=== PATIENT | female | born 1970 | race Caucasian/White ===

== ENCOUNTER → 2019-03-23 | Outpatient (CLI) | payer OTHER, SELFPAY ==
--- NOTE | 2019-03-23 11:48 | BI_ITS ---
MAMMOGRAPHY - BILATERAL SCREENING 3-D TOMOSYNTHESIS REASON FOR EXAM: Female, 49 years old. Bilateral Screening 3-D tomosynthesis PERTINENT HISTORY: Grandmother and aunt with breast cancer.. TECHNIQUE: 2-D mammograms and 3-D Tomosynthesis of the breast (s) were performed. CAD was performed. COMPARISON: 05/19/2017 FINDINGS: The breast composition is heterogeneously dense that can obscure small breast masses. Scattered benign calcifications are seen. No dense spiculated masses or suspicious microcalcifications are identified. No architectural distortion is identified. There is no skin thickening or retraction. There has been no significant change since the prior study. BI/SCREENING MAMM (CAD), BILAT IMPRESSION: No mammographic signs of malignancy. Routine yearly mammograms recommended. ASSESSMENT CATEGORY: BIRADS Category 1: Negative. A letter regarding these results will be sent to the patient by the facility within 30 days. FOLLOW UP RECOMMENDATION: Yearly follow up mammogram recommended. (A) Approximately 10% of breast cancers are not detected by mammography. A normal mammogram should not delay biopsy of a clinically suspicious abnormality. Electronically Signed: Brady Olivas MD at 13:15 EDT , Service support ,
== END | disposition home or self-care (01) ==
LOC: OPBI 11:48
PROVIDERS: Family Provider Family Medicine; PCP Family Medicine; Referring Provider Family Medicine; Visit Provider Family Medicine
DX: Z12.31 Encounter for screening mammogram for malignant neoplasm of breast (principal)
CPT/HCPCS: 77063; 77067

== ENCOUNTER 2022-04-18 10:20 | Emergency (ER) | payer MEDICAID, SELFPAY ==
[2022-04-18 10:20] VITALS: BP 115/85; PULSE 81; RESP 16; TEMP 36.6; O2SAT 100; BMI 25.3
--- NOTE | 2022-04-18 11:30 | RAD_ITS ---
EXAM: XR THORACIC SPINE, 3 VIEWS CLINICAL INDICATION: Pain. Lifting trauma. TECHNIQUE: Frontal, lateral and swimmer''s views of the thoracic spine. This report was created using [employer] report [employer] technology. COMPARISON: None. FINDINGS: VERTEBRAE: Unremarkable. Preserved vertebral body height. No fracture. No spondylolisthesis. Preservation of the normal thoracic kyphosis. No significant facet arthropathy. DISC SPACES: Unremarkable. Disc spaces are maintained. 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 RAD/Thoracic Spine 3 Views IMPRESSION: No acute fracture or malalignment of the thoracic spine. Electronically Signed: Robinson Peterson MD at 13:15 EDT ,
--- NOTE | 2022-04-18 11:30 | RAD_ITS ---
EXAM: XR LUMBOSACRAL SPINE, 2 OR 3 VIEWS CLINICAL INDICATION: Pain. Lifting trauma. TECHNIQUE: Frontal and lateral views of the lumbar spine and sacrum. This report was created using [employer] report [employer] technology. COMPARISON: None. FINDINGS: VERTEBRAE: Unremarkable. Preserved vertebral body height. No fracture. No spondylolisthesis. Preservation of the normal lumbar lordosis. No significant facet arthropathy. DISC SPACES: No acute findings. Disc spaces are maintained. GASTROINTESTINAL TRACT: Unremarkable as visualized. Included bowel gas pattern is non-obstructive. RAD/Lumbar Spine 2 or 3 Views IMPRESSION: Normal lumbar spine radiographs. Electronically Signed: Robinson Peterson MD at 13:13 EDT ,
--- NOTE | 2022-04-18 14:28 | ED.RN ---
see downtime paperwork
--- NOTE | 2022-04-18 15:11 | ED.RN ---
Patients pain has been reassessed. Pain has decreased. Medications documented on downtime forms. Patient able to walk with assistance. [facility]ing [facility]
--- NOTE | 2022-04-18 15:16 | ED.VIS.BACK ---
HPI History of Present Illness Chief Complaint: Back Informant: patient Onset/Context/Timing Onset: Today Context: Sudden Onset Injury: lifting Timing: Continuous Quality: Aching, Burning and - (Stabbing) Location: Thoracic and Lumbar Worsened by: improves with Movement Relieved by: Remaining Still Associated Symptoms Associated Symptoms: Unable to Ambulate; Negative for Numbness, Tingling, Radiation to Right Leg, Radiation to Left Leg, Fever, Abdominal Pain, Urinary Retention, Urinary Incontinence, Constipation and Fecal Incontinence Narrative Narrative: Patient presents with back pain that began today. Patient states she was bending over and lifting up her washing machine to screw the foot peg back into place. Patient states she felt like something fell from the ceiling and hit her in her low back. Patient denies any trauma. Patient states she was unable to ambulate after that. Patient states her pain is aching, burning, and stabbing. Patient states it is over the thoracic and lumbar muscles. Patient denies any radiation to the lower extremities. Patient denies any bowel or bladder changes. Patient denies any saddle anesthesia. PFSH PFSH Medical History (Updated 04/18/22 @ 15:[address] Silvio Lawson DO) Lumbar disc disease Medical History no medical history Home Medications cyclobenzaprine 10 mg PO QHS PRN PRN #20 tablet 04/18/22 [Rx Last Taken Unknown] oxycodone-acetaminophen 1 tab PO Q6H PRN PRN 3 Days #12 tablet 04/18/22 [Rx Last Taken Unknown] Allergy/AdvReac Type Severity Reaction Status Date / Time No Known Allergies Allergy Verified 04/18/22 14:19 Surgical History (Updated 04/18/22 @ 15:[address] Silvio Lawson DO) Hx of tubal ligation Surgical History no surgical history Social History Smoking Status: Never smoker ROS ROS ED Constitutional Constitutional ED: Denies chills or fever(s) Eyes Eyes: Denies blurry vision or change in vision ENT ENT ED: Denies rhinorrhea or sore throat Cardiovascular Cardiovascular: Denies chest pain or palpitations Respiratory/Chest Respiratory/Chest: Denies cough or dyspnea Gastrointestinal Gastrointestinal: Denies nausea or vomiting Genitourinary Genitourinary ED: Denies dysuria or hematuria Musculoskeletal Musculoskeletal: Reports back pain; Denies neck pain Integumentary Denies abscess or rash Neurologic Neurologic: Denies headache(s) or weakness Allergic/Immunologic Allergic/Immunologic ED: Denies mouth swelling or urticaria EXAM Physical Exam Const Vital Signs: 04/18/22 10:20 Temperature 98 F Temperature Source Temporal Pulse Rate 81 Respiratory Rate 16 Blood Pressure 115/85 H Blood Pressure Mean 95 Pulse Ox 100 Oxygen Delivery Method Room Air Positive well nourished and well developed General Appearance ED: well developed and NAD HEENT Reports moist mucous membranes Neck supple General: Negative for tenderness Resp normal respiratory effort and clear to auscultation bilaterally Cardio regular rate and regular rhythm GI soft to palpation and non-tender Back/Spine Back/Spine Narrative: There is tenderness over the thoracic and lumbar paraspinal muscles. Range of motion was limited in all motions of the thoracic and lumbar spine secondary to pain. Strength is 5/5 bilaterally in the upper and lower extremities. There are no sensory deficits noted. Deep tendon reflexes are 2/4 bilaterally in the lower extremities. Thoracic Spine / Upper Back: paraspinal muscle tenderness bilateral Lumbar Spine / Lower Back: ROM limited Extremity normal to inspection General Extremety ED: Negative for edema or tenderness General Extremity: Negative for edema Neuro oriented x3 and no sensory deficits noted Sensorium / Orientation: alert Motor Exam: strength 5/5 throughout Deep Tendon Reflexes: Rt Patellar (L4): 2+, Lt Patellar (L4): 2+, Rt Ankle (S1): 2+ and Lt Ankle (S1): 2+ Deep Tendon Reflexes Back: Rt Patellar (L4): 2+, Lt Patellar (L4): 2+, Rt Ankle (S1): 2+ and Lt Ankle (S1): 2+ Psych mental status grossly normal MDM MDM MDM Narrative Medical decision making narrative: X-rays of the thoracic spine were obtained. There are 3 views. On my interpretation, there is no acute fracture or spondylolisthesis. Radiologist also interpreted the x-ray and agrees. X-rays of the lumbar spine were obtained. There are 3 views. On my interpretation, there is no acute fracture or spondylolisthesis. There are no degenerative changes noted. Radiologist also interpreted the x-ray and agrees. Patient was given a dose of morphine initially. Patient was given a dose of Dilaudid prior to x-rays. On reevaluation, patient was starting to feel better but was unsure if she was able to walk. Patient was given injections of Toradol, Norflex, Dilaudid. Patient was feeling better after this. Patient was able to ambulate. Patient was given prescription for Percocet and Flexeril. Patient was instructed to follow-up with her primary care physician in 3 to 5 days. Patient was also given referral for orthopedic spine surgery. Patient was instructed to return if worse in any way. Patient understood and was agreeable with the plan. All questions were answered. Radiography X-Ray: LS SPine, T-Spine, Read by ED Physician, Read by Radiologist, No Fracture and Normal Bony Alignment Diagnostic Testing: Clinical Impression(s) from Imaging Studies Lumbar Spine X-Ray 04/18/22 11:30 IMPRESSION: Normal lumbar spine radiographs. Electronically Signed: Robinson Peterson MD at 13:13 EDT , Thoracic Spine X-Ray 04/18/22 11:30 IMPRESSION: No acute fracture or malalignment of the thoracic spine. Electronically Signed: Robinson Peterson MD at 13:15 EDT , Discharge Plan Triage Chief Complaint: Back ED Provider: Silvio Lawson Dx/Rx/DC Orders Clinical Impression: Acute low back pain Instructions: ED Back Sprain/Strain, ED Back and Neck Pain, General Prescriptions: New cyclobenzaprine [cyclobenzaprine] 10 MG tablet 10 mg PO QHS PRN PRN (Reason: Muscle Spasm) Qty: 20 RF: 0 oxycodone-acetaminophen [oxycodone-acetaminophen] 1 TABLET tablet 1 tab PO Q6H PRN PRN (Reason: Pain) 3 Days Qty: 12 RF: 0 Primary Care Provider: Temo Banegas Referrals: Temo Banegas MD [Primary Care Provider] - Florentino Luna DO [STAFF PHYSICIAN] - 3-5 Days Dusty Loyd DO [STAFF PHYSICIAN] - 3-5 Days Disposition Disposition: Home, Self Care
== END 2022-04-18 15:42 | disposition home or self-care (01) ==
PROVIDERS: Emergency Provider Emergency Medicine; PCP Family Medicine; Visit Provider Emergency Medicine
DX: M54.50 Low back pain, unspecified (principal); X50.0XXA Overexertion from strenuous movement or load, initial encounter
CPT/HCPCS: 72072; 72100; 96372; 96374; 96375; 96376; 99284; J7030; A4216

== ENCOUNTER → 2022-10-12 | Outpatient (CLI) | payer MEDICAID, SELFPAY ==
--- NOTE | 2022-10-12 17:25 | MRI_ITS ---
STUDY: MRI LUMBAR SPINE WITHOUT CONTRAST REASON FOR EXAM: Female, 52 years old. pain TECHNIQUE: Standardized fat and water weighted pulse sequences were obtained in the sagittal and axial planes. COMPARISON: None FINDINGS: T12-L1: Normal endplates. Normal disc height, hydration and morphology. Normal bilateral facet joints. Normal central canal and bilateral lateral recesses. Normal bilateral intervertebral neural foramina. Normal lumbar lordosis. There is no substantial scoliosis. Normal conus medullaris that terminates at the L1-2: Grade 1 retrolisthesis . Minor anterior endplate spurring.. Narrowed disc space with desiccation of the disc and small left posterolateral disc protrusion.. Normal bilateral facet joints. Normal central canal and bilateral lateral recesses. Normal bilateral intervertebral neural foramina. L2-3: Schmorl''s node deformity of superior endplate of L3. Normal disc height, hydration and mild annular bulge. Normal bilateral facet joints. Normal central canal and bilateral lateral recesses. Normal bilateral intervertebral neural foramina. L3-4: Schmorl''s node deformity superior endplate of L4. Normal disc height, hydration and minimal annular bulge.. Mild facet arthropathy.. Normal central canal and bilateral lateral recesses. Minor bilateral neuroforaminal stenosis secondary to annular bulge and facet arthropathy L4-5: Normal endplates. Normal disc height, hydration and minimal annular bulge.. Mild facet arthropathy.. Normal central canal and bilateral lateral recesses. Mild bilateral neuroforaminal encroachment.. L5-S1: Normal endplates. Normal disc height, hydration and minimal annular bulge.. Bilateral facet arthropathy. Normal central canal and bilateral lateral recesses. Normal bilateral intervertebral neural foramina. Normal visualized sacral ala. Normal visualized paraspinous soft tissue structures. MRI/Spine Lumbar (Routine) IMPRESSION: No evidence for acute fracture or other significant bony pathology. Mild degenerative changes and Schmorl''s nodes deformities of superior endplates of L3 and L4. Multilevel minimal bulging annuli. Mild spinal stenosis at L3-4 and L4-5 secondary to minimal annular bulge and facet arthropathy Electronically Signed: Florentino Prieto MD at 18:59 EST ,
== END | disposition home or self-care (01) ==
LOC: MRI 16:46
PROVIDERS: PCP Family Medicine; Visit Provider Orthopaedic Surgery
DX: M51.26 Other intervertebral disc displacement, lumbar region (principal)
CPT/HCPCS: 72148

== ENCOUNTER → 2022-12-02 | Outpatient (CLI) | payer MEDICAID, SELFPAY ==
--- NOTE | 2022-12-02 16:59 | MRI_ITS ---
STUDY: MRI BRAIN WITHOUT CONTRAST REASON FOR EXAM: Female, 52 years old. r/o MS, tingling left arm, confusion TECHNIQUE: Standardized multiplanar fat and water weighted pulse sequences were obtained. COMPARISON: None. FINDINGS: Normal size of the ventricles and extra-axial spaces for the patient''s age. There are multiple high T2 signal lesions suggesting demyelinating plagues in the supratentorial brain are suspicious for multiple sclerosis (MS). Normal bilateral basal ganglia. Normal thalami. There is no extra-axial fluid accumulation. Normal flow voids within the major intracranial circulation suggesting patency by spin echo criteria. Normal sella turcica, pituitary gland, infundibular stalk, optic chiasm and hypothalamus. Normal tectal plate and pineal gland. Normal midbrain, steven and medulla. Normal cerebellum. Normal basal cisterns. Normal bilateral temporal bones. Normal bilateral internal auditory canals. No demonstrated orbital abnormality, within the constraints of a routine brain study. Normal visualized paranasal sinuses. Normal calvarium and skull base. Normal visualized soft tissue structures. Normal visualized upper cervical spine. MRI/Brain without Contrast IMPRESSION: There are multiple high T2 signal lesions suggesting demyelinating plagues in the supratentorial brain are suspicious for multiple sclerosis (MS). Electronically Signed: Isaak Gay MD at 4:48 EST ,
--- NOTE | 2022-12-02 16:59 | MRI_ITS ---
STUDY: MRI CERVICAL SPINE WITHOUT CONTRAST REASON FOR EXAM: Female, 52 years old. r/o MS, tingling left arm TECHNIQUE: Standardized fat and water weighted pulse sequences were obtained in the sagittal and axial planes. COMPARISON: None FINDINGS: Normal foramen magnum and brainstem-cervical cord junction. Normal craniovertebral junction. Normal anterior atlantoaxial articulation. Normal odontoid process. Normal cervical lordosis. Normal vertebral bodies and posterior osseous elements. C2-3: Normal endplates. Normal disc height, signal and morphology. Normal central canal and intervertebral neural foramina. C3-4: Endplate spondylosis. Central and paracentral disc bulge. Degenerative changes of the bilateral facet joints and uncovertebral joints. Moderate narrowing of the central canal and the bilateral intervertebral neural foramina. C4-5: Endplate spondylosis. Central and paracentral disc bulge. Degenerative changes of the bilateral facet joints and uncovertebral joints. Mild narrowing of the central canal and the bilateral intervertebral neural foramina. C5-6: Endplate spondylosis. Central and paracentral disc bulge. Degenerative changes of the bilateral facet joints and uncovertebral joints. Mild narrowing of the central canal and the bilateral intervertebral neural foramina. C6-7: There is small left para midline disc herniation. C7-T1: Normal endplates. Normal disc height, signal and morphology. Normal central canal and intervertebral neural foramina. Normal cervical cord. Multiple bilateral nonspecific thyroid nodules the largest measures 1.3 cm. Further evaluation by ultrasound would be helpful. MRI/Spine Cervical (Routine) IMPRESSION: Multilevel degenerative changes, as described above. There is no evidence of demyelinating lesions in the cervical spinal cord. Multiple bilateral nonspecific thyroid nodules the largest measures 1.3 cm. Further evaluation by ultrasound would be helpful. Electronically Signed: Isaak Gay MD at 6:54 EST ,
== END | disposition home or self-care (01) ==
LOC: MRI 16:59
PROVIDERS: PCP Family Medicine; Referring Provider Orthopaedic Surgery; Visit Provider Orthopaedic Surgery
DX: G35 Multiple sclerosis (principal)
CPT/HCPCS: 70551; 72141

== ENCOUNTER → 2022-12-10 | Outpatient (CLI) | payer MEDICAID, SELFPAY ==
[2022-12-10 12:28] LABS: Erythrocyte Sedimentation Rate 8 mm/hr (0-30)
[2022-12-10 12:31] LABS: Hematocrit 41.5 % (37-47); Hemoglobin 14.3 g/dL (12.0-15.0); Mean Corp Hgb Conc 34.5 g/dL (32-36); Mean Platelet Vol. 10.6 fl (6.2-12.0); Platelet Count 305 K/mm3 (150-450); RBC Distribution Width CV 11.9 % (11.6-14.6); RBC Distribution Width SD 38.2 fl (35.1-43.9); Red Blood Count 4.77 M/mm3 (4.2-5.4); White Blood Count 5.4 K/mm3 (4.4-11.0)
[2022-12-10 12:45] LABS: Vitamin B12 355 pg/mL (211-911)
[2022-12-10 12:59] LABS: ALB/GLOB Ratio 1.2 RATIO (0.9-2.4); AST(SGOT) 16 U/L (15-37); Alanine Aminotransfer ALT/SGPT 29 U/L (13-56); Alkaline Phosphatase 49 U/L (45-117); Anion Gap 9 (5-15); BUN 19 mg/dL (7-18); BUN/Creat Ratio 22.6 RATIO (10-20); Calcium,Total 9.5 mg/dL (8.5-10.1); Chloride 103 mmol/L (98-107); Creatinine, Serum 0.84 mg/dL (0.55-1.02); EST Glomerular Filtration Rate 76 mL/min (>60); Est Glom Filt Rate - Afr Amer 92 mL/min (>60); Free T3 3.2 pg/mL (2.18-3.98); Globulin 3.3 g/dL (2.2-4.2); Glucose 98 mg/dL (74-106); Magnesium 1.8 mg/dL (1.6-2.6); Potassium 4.1 mmol/L (3.5-5.1); Protein, Total 7.3 g/dL (6.4-8.2); Sodium Level 139 mmol/L (136-145); T4 Free Direct 1.08 ng/dL (0.76-1.46); Thyroid Stim Hormone (TSH) 0.71 uIU/mL (0.358-3.74)
[2022-12-13 21:28] LABS: ANTINUCLEAR ANTIBODIES DIRECT Negative (Negative)
[2022-12-16 16:09] LABS: Complement C3 97 mg/dL (82-167); Dilute Prothrombin Time (dPT) 36.3 sec (0.0-47.6); Dilute Russell Viper Venom 33.2 sec (0.0-47.0); Free Kappa Light Chains 17.4 mg/L (3.3-19.4); Free Lambda Light Chains 15.7 mg/L (5.7-26.3); Protein C Antigen 132 % (60-150); Protein S, Free 114 % (61-136); Vitamin B1, Thiamine 117.5 nmol/L (66.5-200.0); dPT Confirm Ratio 0.99 Ratio (0.00-1.34)
[2022-12-16 18:55] LABS: Anti-Cardiolipin Ab, IgA, Qn < 9 APL U/mL (0-11); Anti-Cardiolipin Ab, IgG, Qn < 9 GPL U/mL (0-14); Anti-Cardiolipin Ab, IgM, Qn 11 MPL U/mL (0-12); Anti-Thrombin 3 AG, Immunol 104 % (72-124); Antithrombin 3 Function 125 % (75-135); Complement CH50 53 U/mL (>41); Interpretation Comment: (.); PTT-LA 30.4 sec (0.0-51.9); Protein C, Functional 165 % (73-180); Protein S, Funtional 102 % (63-140); Protein S, Total 107 % (60-150)
== END | disposition home or self-care (01) ==
LOC: MTLAB 11:01
PROVIDERS: PCP Family Medicine; Referring Provider Psychiatry & Neurology Neurology; Visit Provider Psychiatry & Neurology Neurology
DX: I67.9 Cerebrovascular disease, unspecified (principal); R53.83 Other fatigue; R20.2 Paresthesia of skin; E04.2 Nontoxic multinodular goiter
CPT/HCPCS: 36415; 80053; 81240; 81241; 82607; 82652; 82746; 83735; 83883; 84425; 84439; 84443; 84481; 85027; 85300; 85301; 85302; 85303; 85305; 85306; 85652; 86038; 86147; 86160; 86162; 86225; 86235

== ENCOUNTER → 2022-12-13 | Outpatient (CLI) | payer MEDICAID, SELFPAY ==
--- NOTE | 2022-12-13 15:16 | US_ITS ---
INDICATION: Thyroid nodules EXAMINATION: Ultrasound US Thyroid (eg thyroid, parathyroid, parotid) TECHNIQUE: Delacruz scale and color doppler imaging was performed of the thyroid gland. COMPARISON: MRI cervical spine 12/02/2022. FINDINGS: RIGHT THYROID LOBE: 5.3 x 1.7 x 1.6 cm. Heterogenous echotexture. Nodule 1: Mid pole nodule 1.0 x 0.8 x 1.5 cm TRV X AP X CC. Mixed cystic and solid, isoechoic, taller than wide, smooth margins, no echogenic foci. TR level 4. Nodule 2: Lower pole nodule 0.8 x 0.6 x 0.9 cm. Solid, very hypoechoic, taller than wide, smooth margins with several punctate echogenic foci. TR level 5. Scattered other smaller subcentimeter nodules. LEFT THYROID LOBE: 5.1 x 1.5 x 1.3 cm. Heterogenous echotexture. Scattered subcentimeter nodules. ISTHMUS: 0.3 cm thick. Contains 2 subcentimeter nodules. US/Thyroid IMPRESSION: Multinodular thyroid. ACR guidelines recommend 1 year follow-up of the 2 right-sided nodules described above. Electronically Signed: Leland Denney MD at 0:03 EST Reading Location ID and State: [address] [place] [address] Tel , Service support ,
== END | disposition home or self-care (01) ==
LOC: US 15:12
PROVIDERS: PCP Family Medicine; Referring Provider Psychiatry & Neurology Neurology; Visit Provider Psychiatry & Neurology Neurology
DX: E04.2 Nontoxic multinodular goiter (principal)
CPT/HCPCS: 76536

== ENCOUNTER → 2022-12-27 | Outpatient (CLI) | payer MEDICAID, SELFPAY ==
[2022-12-27 11:21] VITALS: BP 103/74; PULSE 74; RESP 14; TEMP 36.7; O2SAT 100; BMI 24.2
--- NOTE | 2022-12-27 12:20 | RAD_ITS ---
PROCEDURE: Fluoroscopic guided Lumbar Puncture. DATE: 12/27/2022. CLINICAL INDICATION: Possible multiple sclerosis. PHYSICIAN: Norman Cabrera M.D. MEDICATIONS: 1% lidocaine administered subcutaneously for local anesthesia. ACCESS SITE: Lower posterior back. NEEDLE: 22-gauge spinal needle. SPECIMEN: Approximately 14 mL clear]CSF fluid. FLUOROSCOPY TIME (if supplied): (26 seconds) minutes/seconds. No images were submitted. COMPLICATIONS: None immediate. The risks, benefits, and alternatives to the procedure were explained to the patient. The specific risks of bleeding, infection, and neurovascular injury were detailed and accepted. Witnessed informed consent was obtained. The patient was placed on the fluoroscopic table in the prone position. The level for needle entry was determined and marked. The overlying skin was cleaned and prepped in the usual sterile fashion. 2% lidocaine was administered subcutaneously for local anesthesia. Under fluoroscopic guidance a 22-gauge spinal needle was advanced. The thecal sac was entered at the L2-L3 vertebral level. The inner stylet was removed. There was spontaneous flow of clear CSF fluid. The patient was placed in a reversed Trendelenburg position. Approximately 14 mL of clear cerebrospinal fluid was collected using gravity. The specimen was collected and submitted to the laboratory for further evaluation. The needle was withdrawn,. Hemostasis was achieved and a sterile dressing placed. The patient tolerated the procedure well without any immediate complications. The patient was placed supine with head elevated and returned to the floor in stable condition. RAD/Dx Lumbar Puncture w/IMG Guide IMPRESSION: Successful fluoroscopic-guided lumbar puncture. Electronically Signed: Norman Cabrera MD at 13:29 EST ,
[2022-12-27 12:45] VITALS: BP 106/70; PULSE 71; RESP 16; O2SAT 100
--- NOTE | 2022-12-27 12:45 | CYSPIN_PTH ---
PATIENT: CARMELLA CUTLER LOC: [facility] U#:[id number] AGE/SX: 52/F ROOM: RE12/27/[address]: Dr. Joseph Dejesus MD : 1970 BED: DIS: 12/27/2022 SPEC #: [id number] RECD: 12/27/22 13:02 STATUS: AGUILA CHAIM #: [id number] NAVI: 12/27/22 12:[address]: Joseph Dejesus DEPT: CYTOLOGY RECD BY: Gloria Samaniego ENTERED: 12/27/22 13:02 SP TYPE: CYSPIN FL OTHR DR: Dr. Luz Huffman MD Tissues: Cerebrospinal Fluid Procedures: Pap Stain (control) Special Stain Group II Cytospin Fluid HEADER OPERATION: Lumbar puncture PRE-OP DIAGNOSIS: Possible multiple sclerosis TISSUE SUBMITTED: Cerebrospinal fluid for cytology DIAGNOSIS CYTOLOGY Cerebrospinal fluid for cytology (cytospin): Negative for malignant cells. Virtually acellular specimen. AM:camron 12/28/2022 CYTOLOGY STUDY Slides are reviewed. CYTOLOGY GROSS Received is 3 ml of clear colorless fluid labeled with the patient's name and and designated per the requisition as CSF. Submitted for cytology preparation. / camron 12/27/2022 TC:5 CPT: 44508
[2022-12-27 12:46] LABS: Cytology, Body Fluid / CSF SEE PATHOLOGY REPORT
[2022-12-27 13:00] VITALS: BP 115/75; PULSE 75; RESP 16; O2SAT 98
[2022-12-27] MEDS: Lidocaine 1% (30 ml sdv) 30 ML Vial INFILT (13:17)
[2022-12-27 13:20] LABS: CSF Color COLORLESS (Colorless); Tested Tube # 4
[2022-12-27 13:21] LABS: Appearance CSF (character) CLEAR (Clear); RBC Count, Spinal Fluid 0 /mm-3 (None seen); White Count, CSF 0 /mm-3 (0 - 5)
[2022-12-27 13:22] LABS: Glucose Spinal Fluid 60 mg/dL (40-75)
[2022-12-27 13:25] LABS: Body Fluid QC Type(s) BF3Q
[2022-12-27 13:45] VITALS: BP 103/74; BP 109/60; PULSE 71; RESP 18; TEMP 36.9; O2SAT 99
[2022-12-28 12:23] LABS: Pathologist Review Reviewed
[2022-12-28 14:09] LABS: CSF Albumin 21 mg/dL (8-37); CSF IgG 1.9 mg/dL (0.0-6.7); CSF IgG Index 0.5 (0.0-0.7); IgG Serum 872 mg/dL (586-1602); IgG Synthesis Rate, CSF -3.1 mg/day (-9.9 TO +3.3); IgG/Alb Ratio, CSF 0.09 (0.00-0.25); Serum Albumin 4.4 g/dL (3.8-4.8)
[2022-12-28 20:19] LABS: CSF:Serum Albumin Index 5 (0-8)
[2023-01-04 17:07] LABS: Myelin Basic Protein, MBP 2.5 ng/mL (0.0-3.7)
[2023-01-04 18:23] LABS: VDRL Cerebrospinal Fluid Non Reactive (Non Rea:<1:1)
== END | disposition home or self-care (01) ==
LOC: RAD 10:47
PROVIDERS: PCP Internal Medicine; Referring Provider Psychiatry & Neurology Neurology; Visit Provider Psychiatry & Neurology Neurology
DX: G35 Multiple sclerosis (principal)
CPT/HCPCS: 36415; 62328; 82040; 82042; 82784; 82945; 83873; 83916; 84157; 86592; 87070; 87205; 88108; 88313; 89050; 89051

== ENCOUNTER → 2023-01-17 | Outpatient (CLI) | payer MEDICAID, SELFPAY ==
--- NOTE | 2023-01-17 16:38 | NEURO ---
NCS and/or EMG Patient Report Ordering Doctor: Joseph Dejesus DATE OF SERVICE: 01/17/23 Indication: Intermittent numbness and tingling of the left upper extremity. Findings: Nerve conduction studies were performed in the left upper extremity. The left median motor study recording the abductor pollicis brevis showed a normal amplitude, normal distal latency and normal conduction velocity. The left ulnar motor study recording the abductor digiti minimi showed a normal amplitude, normal distal latency and normal conduction velocity. No conduction block or focal slowing was present across the elbow. Left median minimal F wave latencies were normal. The left median sensory response recording digit two showed a normal amplitude, latency and conduction velocity. The left ulnar sensory response recording digit five showed a normal amplitude, latency and conduction velocity. The left radial sensory response recording over the extensor snuff box showed a normal amplitude, latency and conduction velocity. Needle EMG of the left upper extremity and cervical paraspinal muscles was performed. No denervation was seen in any muscle. All motor unit morphology, activation and recruitment patterns were normal. Impression: This is a normal study. There is no electrophysiologic evidence of cervical radiculopathy in the left upper extremity. In addition, there was no electrophysiologic evidence of median or ulnar entrapment neuropathy, or brachial plexopathy in the left upper extremity. Dejon Ball D.O. Multi Select Codes Neurology Neurology Interp Codes: 21329-47 Musc test done w/n test comp (interp) and 06947-53 Nrv cndj test 7-8 studies (interp)
== END | disposition home or self-care (01) ==
LOC: PSN 15:40
PROVIDERS: PCP Internal Medicine; Visit Provider Psychiatry & Neurology Neurology
DX: R20.2 Paresthesia of skin (principal); M54.2 Cervicalgia
CPT/HCPCS: 95886; 95910

== ENCOUNTER 2023-06-09 10:30 | Outpatient (RCR) | payer MEDICAID, SELFPAY ==
--- NOTE | 2023-05-13 12:00 | HP.PTEVAL ---
Patient's Visit Information CARMELLA CUTLER is a 53 year old F referred to Physical Therapy by Dr. Joseph Dejesus MD with a diagnosis of LOW BACK PAIN ,CERVICALAGIA. Date of Evaluation: 05/13/23 Physical Therapist: Kaushik Dunlap, PT, Cert MDT, OCS - Visit Plan Frequency: 2x /Week Duration: 4 Weeks Plan: PT INTERVETIONS BRIAN EX'S FOR LUMBAR/CERVICAL ,ACTIVITY MODIFICATION ,POSTURAL EX'S PROGRESS TO DLS AND MODLATIES FOR PAIN - Subjective This 53 y/o female presents to physical therapy with lumbar pain and cervical pain. Back is worse than neck Patient has had lumbar pain from fall on butt causes pain 2006 had coccyx fracture. Last March 2022 bent over to fix washing machine felt severe pain. Patient went to ER due to unable to walk. Seen chiropractor no change. Seen DR Loyd MRI showed bulging/protrusion disc as well in cervical. Patient was referred to Dr Dejesus to r/o MS which was negative. Patient was prescribed pain medication and muscle relaxer. Recommended PT. No recommendations no surgery. Patient has no injections. Location symmetrical lumbar occasional legs. Aggravating factors bending/twisting/ lifting ,standing ,sitting extended walking. Alleviating factors rest medication. Coughing/sneezing-. Bowel/bladder -. Patient pain affects sleeping. Cervical has soreness .stiffness, Denies SPENCER /tinnitus /nausea. Not specific things that alleviating/aggravating factors . Denies paresthesia/tingling ,occasional in extremities . Right great toe numb. Patient condition affects QOL and function . Patient goals to decrease pain. SOCIAL: single. VOCATION: unemployed - Pain Bilateral Back Pain Intensity (Out of 10): 5 Pain Intensity Range: 10 Bilateral Neck Pain Intensity (Out of 10): 1 Pain Intensity Range: 10 - Objective POSTURE : mild forward posture. PALAPTION: tender S//LS. NEURO: denies paresthesia/tingling ,reflexes C5-6-7 2/3 ,L3-4,L4-5 2/3. SYMMTRIES: alighn. MMT: quads/hams 4/5 ,GTE/ANKLE 4/5 ,(peak force) hips flexion left 13.7 ,right 12.2. BUE grossly 4/5 ,shoulder 4-/5. CERVICAL ROM: flexion WFL retraction WFL ,lateral flexion ,rotation min/mod loss ,extension WFL. LUMBAR ROM: flexion/extension mod loss ,side glides min loss. FLEXABLITY: hamstrings min tight - Special Tests C/S Radiculapathy - Left Upper limb tension test: Negative C/S Radiculapathy - Right Upper limb tension test: Negative C/S Radiculapathy - Left Spurlings: Negative C/S Radiculapathy - Right Spurlings: Negative C/S Radiculapathy - Left Cervical distraction: Negative C/S Radiculapathy - Right Cervical distraction: Negative C/S Radiculapathy - Left Relief test: Negative Sharp Anil: Negative Vertebral Artery Test: Negative Alar Ligament Test: Negative Cervical Sitting: Protrusion - Mechanical Response: No effect Cervical Sitting: Protrusion - Symptoms During Testing: No effect Cervical Sitting: Protrusion - Symptoms After Testing: No effect Cervical Sitting: Retraction - Mechanical Response: No effect Cervical Sitting: Retraction - Symptoms During Testing: No effect Cervical Sitting: Retraction - Symptoms After Testing: No effect Cervical Sitting: Retraction-Extension - Mechanical Response: No effect Cerv Sitting: Retraction-Extension - Symptoms During Testing: No effect Cerv Sitting: Retraction-Extension - Symptoms After Testing: No effect Cervical Sitting: Sidebend Right - Mechanical Response: No effect Cervical Sitting: Sidebend Right - Symptoms During Testing: No effect Cervical Sitting: Sidebend Left - Mechanical Response: No effect Cervical Sitting: Sidebend Left - Symptoms After Testing: No effect Cervical Sitting: Rotation Right - Mechanical Response: No effect Cervical Sitting: Rotation Right - Symptoms During Testing: No effect Cervical Sitting: Rotation Right - Symptoms After Testing: No effect Cervical Sitting: Rotation Left - Mechanical Response: No effect Cervical Sitting: Rotation Left - Symptoms During Testing: No effect Cervical Sitting: Rotation Left - Symptoms After Testing: No effect Cervical Sitting: Flexion - Mechanical Response: No effect Cervical Sitting: Flexion - Symptoms During Testing: No effect Cervical Sitting: Flexion - Symptoms After Testing: No effect L/S Slump test left side: Negative L/S Slump test right side: Negative L/S Left Straight Leg Raise: Negative L/S Right Straight Leg Raise: Negative Lumbar Standing: Flexion - Mechanical Response: No effect Lumbar Standing: Flexion - Symptoms During Testing: Increases Lumbar Standing: Flexion - Symptoms After Testing: Worse Lumbar Standing: Extension - Mechanical Response: No effect Lumbar Standing: Extension - Symptoms During Testing: Increases Lumbar Standing: Extension - Symptoms After Testing: No worse Lumbar Standing: Right Side Glides - Mechanical Response: No effect Lumbar Standing: Right Side [place] - Symptoms During Testing: No effect Lumbar Standing: Right Side [place] - Symptoms After Testing: No effect Lumbar Standing: Left Side [place] - Symptoms During Testing: No effect Lumbar Standing: Left Side [place] - Symptoms After Testing: No effect Lumbar Lying: Flexion - Symptoms During Testing: Increases Lumbar Lying: Flexion - Symptoms After Testing: Worse Lumbar Lying: Extension - Mechanical Response: No effect Lumbar Lying: Extension - Symptoms During Testing: Increases Lumbar Lying: Extension - Symptoms After Testing: No worse - Balance/Special Test Scores Oswestry Low Back Score: 29 - Goals Goal 1:: I with HEP for back and neck Goal Time Frame: 4-6 Weeks Goal 2:: Patient to improve posture for ADLS and housework tasks Goal Time Frame: 4-6 Weeks Goal 3:: Patient to improve lumbar ROM for function of recovery to lift and tie shoes Goal Time Frame: 4-6 Weeks Goal 4:: Patient to improve cervical ROM for function of recovery for ADLS Goal Time Frame: 4-6 Weeks Goal 5:: Patient to demonstrate 50% improvement with less pain and function Goal Time Frame: 4-6 Weeks Goal 6:: Patient to improve back oswestry score by 5 points or > to improve QOL and function Goal Time Frame: 4-6 Weeks - Rehabilitation Potential Physical Therapy Diagnosis: This patient has lumbar pain with derangement with disc protrusion and cervical pain with pain with position ,motion testing weakness worse with bending and lifting thus benefit from skilled PT Rehabilitation Potential: Good - Anticipated Interventions Patient/Client Instruction: Educate patient on: Condition, Plan of Care For the Purpose of:: To decrease pain, To improve nutrient delivery to tissue, To improve ability to perform ADL's, To increase tolerance to activity/condition/position, To improve performance and independence with ADL's, To improve ability of physical actions for home/community/work/leisure, To improve health of tissue, To prevent re-injury Therapeutic Exercise to Include: Strength training, Body mechanics, Postural training, Flexibilty training, Dynamic Lumbar Stabilization, Brian Exercises For the Purpose of:: To decrease pain, To increase ROM, To improve muscle performance and motor function, To improve ability to perform ADL's, To increase tolerance to activity/condition/position, To decrease level of supervision to perform tasks, To improve ability of physical actions for home/community/work/leisure, To increase flexibility/ROM, To reduce risk of recurrence, To prevent re-injury TENS: Yes IF ES: Yes Cryotherapy (ice pack, ice massage): Yes Thermo therapy (hot pack): Yes Ultrasound (thermal/non thermal): Yes For the Purpose of:: To decrease pain, To increase ROM, To improve nutrient delivery to tissue, To increase oxygenation perfusion, To improve health of tissue, To decrease soft tissue restriction Thank you for the opportunity to evaluate your patient. For Medicare and Medicare HMO plans, please review the plan of care and approve it. It will need to be FAXED BACK to us at [phone] for Medicare purposes. For Medicare only, by signing this I certify the plan of care. Please let me know if there are questions or concerns regarding this plan of care. Physician Signature: Date:
--- NOTE | 2023-07-29 07:55 | HP.PTDCSUM ---
Discharge Summary D/C summary: It has been my pleasure to treat CARMELLA CUTLER referred by Dr. Joseph Dejesus MD, with the diagnosis of LOW BACK PAIN, CERVICALAGIA for a total of 7 visit(s). Discharge Date: Please see the following information for a summary of their discharge status. Subjective Subjective: States she's not any better overall since starting PT. States still waking her up at night once or twice a week - it did last night. Low back is worse than the neck. Chiro helps temporarily. Back flares up t/o the day depending on motion and activity, sometimes hurts for no reason. States one time cleaning bath tub and then was in bed for two days. Currently has her next f/u with dr on 08/09, but should move it up. Pain Bilateral Back: Pain Intensity (Out of 10): 4 Bilateral Neck: Pain Intensity (Out of 10): 3 Objective Objective/Function: Consulted with PT about pt's lack of progress. All of us decided to hold on further PT and RTD (Loyd or PCP) to see what the next step is (probably injections). Pt chose to just focus on pain relief today (heat and stim feels the best). Goals Goal 1:: I with HEP for back and neck Goal 2:: Patient to improve posture for ADLS and housework tasks Goal 3:: Patient to improve lumbar ROM for function of recovery to lift and tie shoes Goal 4:: Patient to improve cervical ROM for function of recovery for ADLS Goal 5:: Patient to demonstrate 50% improvement with less pain and function Goal 6:: Patient to improve back oswestry score by 5 points or > to improve QOL and function Plan Plan: D/C D/C Information d/c sentence: If there are questions or concerns regarding this patient's physical therapy, please feel free to call me at [phone]. Thank you for the referral of this patient. Sincerely, Kaushik Dunlap, PT, Cert MDT, OCS Balance/Gait/Functional tests Balance/Special Test Scores Oswestry Low Back Score: 29
== END 2023-06-09 19:00 | disposition home or self-care (01) ==
LOC: PT 10:30
PROVIDERS: PCP Internal Medicine; Referring Provider Psychiatry & Neurology Neurology; Visit Provider Psychiatry & Neurology Neurology
DX: M51.26 Other intervertebral disc displacement, lumbar region (principal); M54.50 Low back pain, unspecified; M54.2 Cervicalgia
CPT/HCPCS: 97014; 97035; 97110; 97162; G0283

== ENCOUNTER → 2023-08-16 | Outpatient (CLI) | payer MEDICAID, SELFPAY ==
[2023-08-16 12:17] LABS: Hematocrit 39.3 % (37-47); Hemoglobin 13.2 g/dL (12.0-15.0); Mean Corp Hgb Conc 33.6 g/dL (32-36); Mean Corpuscular Hgb 30.1 pg (27.0-32.0); Mean Corpuscular Volume 89.5 fL (81-99); Mean Platelet Vol. 10.2 fl (6.2-12.0); Platelet Count 300 K/mm3 (150-450); RBC Distribution Width CV 11.4 % (11.6-14.6); RBC Distribution Width SD 37.1 fl (35.1-43.9); Red Blood Count 4.39 M/mm3 (4.2-5.4); White Blood Count 3.6 K/mm3 (4.4-11.0)
[2023-08-16 12:52] LABS: ALB/GLOB Ratio 1.1 RATIO (0.9-2.4); AST(SGOT) 27 U/L (15-37); Alanine Aminotransfer ALT/SGPT 57 U/L (13-56); Albumin, Serum 3.9 g/dL (3.2-5.0); Alkaline Phosphatase 53 U/L (45-117); Anion Gap 6 (5-15); BUN 16 mg/dL (7-18); BUN/Creat Ratio 19.3 RATIO (10-20); Calcium,Total 9.2 mg/dL (8.5-10.1); Chloride 105 mmol/L (98-107); Creatinine, Serum 0.83 mg/dL (0.55-1.02); EST Glomerular Filtration Rate 77 mL/min (>60); Est Glom Filt Rate - Afr Amer 93 mL/min (>60); Globulin 3.6 g/dL (2.2-4.2); Glucose 90 mg/dL (74-106); Potassium 3.8 mmol/L (3.5-5.1); Protein, Total 7.5 g/dL (6.4-8.2); Sodium Level 140 mmol/L (136-145); T4 Free Direct 1.07 ng/dL (0.76-1.46); Thyroid Stim Hormone (TSH) 1.29 uIU/mL (0.358-3.74)
== END | disposition home or self-care (01) ==
LOC: MTLAB 09:53
PROVIDERS: PCP Internal Medicine; Referring Provider Psychiatry & Neurology Neurology; Visit Provider Psychiatry & Neurology Neurology
DX: R53.83 Other fatigue (principal); E04.2 Nontoxic multinodular goiter
CPT/HCPCS: 36415; 80053; 84439; 84443; 85027

== ENCOUNTER → 2023-08-30 | Outpatient (CLI) | payer MEDICAID, SELFPAY ==
--- NOTE | 2023-08-30 15:42 | US_ITS ---
INDICATION: follow-up thyroid nodules EXAMINATION: Ultrasound US Thyroid (eg thyroid, parathyroid, parotid) TECHNIQUE: Delacruz scale and color doppler imaging was performed of the thyroid gland. COMPARISON: Prior study dated: 12/13/2022 FINDINGS: RIGHT THYROID LOBE: 5.3 x 1.6 x 1.9 cm, volume 8.2 mL. Previously 5.3 x 1.7 x 1.6 cm. Parenchyma: The gland echotexture is homogenous. Thyroid vascularity is normal. LEFT THYROID LOBE: 5 x 1.1 x 1.4 cm, volume 4.1 mL. Previously 5.1 x 1.5 x 1.3 cm. Parenchyma: The gland echotexture is homogenous. Thyroid vascularity is normal. ISTHMUS: 0.1 cm in maximum AP dimension. Previously 0.3 cm. Estimated total number of nodules greater than equal to 1 cm: 3. Foreign Student Adviser nodules are described as follows: 1. Location: Right midpole Size: 1.7 x 1.4 x 0.9 cm, volume 1.1 mL. Previously: 1 x 0.8 x 1.5 cm. Nodule characteristics: Composition: Mixed cystic and solid (1). Echogenicity: Isoechoic (1). Shape: Wider than tall (0). Margins: Ill-defined (0). Echogenic Foci: None (0). ACR TI-RADS total points: 2. Previous 5. ACR TI-RADS category: 1. Previous 4 2. Location: Right lower Size: 0.9 x 0.9 x 0.5 cm, volume 0.2 mL. Previously: 0.8 x 0.6 x 0.9 cm. Nodule characteristics: Composition: Solid or almost completely solid (2). Echogenicity: Very hypoechoic (3). Shape: Wider than tall (0). Margins: Smooth (0). Echogenic Foci: None (0). ACR TI-RADS total points: 5. Previous 5. ACR TI-RADS category: 4. Previous 4 3. Location: Left mid Size: 1 x 0.9 x 0.4 cm, volume 0.2 mL. Previously: 0.9 x 0.5 x 0.7 cm, volume 0.2 mL. Nodule characteristics: Composition: Solid or almost completely solid (2). Echogenicity: Hypoechoic (2). Shape: Wider than tall (0). Margins: Smooth (0). Echogenic Foci: None (0). ACR TI-RADS total points: 4. Previous 4. ACR TI-RADS category: 4. Previous 4 4. Location: Left lower Size: 1 x 0.6 x 0.4 cm, volume 0.1 mL. Previously: Not measured previously. Nodule characteristics: Composition: Solid or almost completely solid (2). Echogenicity: Hypoechoic (2). Shape: Wider than tall (0). Margins: Smooth (0). Echogenic Foci: None (0). ACR TI-RADS total points: 4. ACR TI-RADS category: 4. LYMPH NODES: No lymphadenopathy is seen in the tissue surrounding the thyroid gland. US/Thyroid IMPRESSION: Multinodular thyroid gland again noted, with mild growth of nodule #1 on the right. That said, based on the composition of this nodule, no specific follow-up is recommended. 4 the remaining nodules, both left-sided nodules which are described would be appropriate for continued follow-up ultrasound in one year. ACR TI-RADS RECOMMENDATION REFERENCE: Ultrasound-guided fine-needle aspiration, follow-up ultrasound, no further follow-up. *TR 1 (0 points) and TR 2 (2 points): No FNA or follow-up. *TR 3 (3 points): FNA if more than or equal to 2.5 cm in maximum dimension. Follow-up ultrasound in 1, 3, and 5 years if 1.5 to 2.4 cm in maximum dimension. *TR 4 (4-6 points): FNA if more than or equal to 1.5 cm in maximum dimension. Follow-up ultrasound in 1, 2, 3, and 5 years if 1 to 1.4 cm in maximum dimension. *TR 5 (more than or equal to 7 points): FNA if more than or equal to 1 cm in maximum dimension. Follow-up ultrasound every year for 5 years if 0.5 to 0.9 cm in maximum dimension. *TR 3, TR 4, or TR 5 nodules that are below the size threshold for follow-up receive no follow-up. Electronically Signed: Brodie Nolasco MD at 17:02 EDT ,
--- NOTE | 2023-08-30 15:46 | MRI_ITS ---
EXAM: MR HEAD WITHOUT AND WITH INTRAVENOUS CONTRAST CLINICAL INDICATION: Memory loss. Abnormal MRI brain, white spots found on prior MRI TECHNIQUE: Multiplanar and multisequence MR images of the brain were obtained without and with intravenous contrast. CONTRAST: 13 mL of IV Clariscan. COMPARISON: MRI brain without contrast 12/02/2022. FINDINGS: BRAIN AND EXTRA-AXIAL SPACES: Few nonspecific small subcortical white matter T2 FLAIR hyperintensity foci in the cerebral hemispheres and in the right periatrial white matter. No mass effects and no midline shift. Following IV contrast administration, there are no abnormal enhancing lesions intra-axially and extra-axially. No intra- or extra-axial hemorrhage. No evidence of acute infarct. There is preservation of the feliciano/white matter interface. Posterior fossa structures are unremarkable. Ventricles are appropriate for age. No hydrocephalus. Basal cisterns are patent. No diffusion restriction throughout the brain parenchyma. No abnormal magnetic susceptibility foci throughout the brain parenchyma. SELLA: Unremarkable. Normal sella turcica, pituitary gland, infundibular stalk, optic chiasm and hypothalamus. AUDITORY SYSTEM: Unremarkable. The internal auditory canals are patent. BONES/JOINTS: Unremarkable. No discrete lytic or blastic abnormalities. SINUSES: Unremarkable as visualized. Clear. MASTOID AIR CELLS: Unremarkable as visualized. Clear. ORBITS: Unremarkable as visualized. Both globes, extraocular muscles, optic nerves and retrobulbar fat appear unremarkable. VASCULATURE: Unremarkable as visualized. Normal flow voids in the major intracranial circulation. MRI/Brain W/WO Contrast IMPRESSION: 1. No MRI evidence of acute or subacute ischemic infarct or remote ischemic infarct. 2. Small nonspecific subcortical white matter T2 FLAIR hyperintensity foci in both cerebral hemispheres and in the right periatrial white matter were present previously and are unchanged. Possibilities include migraine-related changes, microvascular disease and vasculitis. These are not perivenular in location as in Bennett''s fingers. MS plaques are doubtful. 3. No interval change when compared to 12/02/2022. Electronically Signed: Robnison Peterson MD at 11:31 EDT ,
== END | disposition home or self-care (01) ==
LOC: MRI 15:39
PROVIDERS: PCP Internal Medicine; Referring Provider Psychiatry & Neurology Neurology; Visit Provider Psychiatry & Neurology Neurology
DX: R04.2 Hemoptysis (principal)
CPT/HCPCS: 70553; 76536; A9575

== ENCOUNTER 2024-10-06 09:49 | Emergency (ER) | payer MEDICAID, SELFPAY ==
[2024-10-06 09:50] VITALS: BP 127/89; PULSE 96; RESP 19; TEMP 36.4; O2SAT 100; BMI 25.0
[2024-10-06] MEDS: Ipratropium/Albuterol Sulfate 3 ML AMPUL.NEB INHALATION (10:34)
[2024-10-06 10:35] LABS: Absolute Lymphocyte Count 1.96 X10^3/uL (0.83-4.51); Absolute Neutrophil Count 3.1 X10^3/uL (2.0-7.7); Basophil# 0.05 X10^3/uL; Basophil% 0.9 % (0-1); Eosinophil# 0.07 X10^3/uL; Eosinophils% 1.2 % (0-5); Hematocrit 40.6 % (37-47); Lymphocyte # 1.96 X10^3/ul (0.83-4.51); Lymphocyte % 34.1 % (19-41); Mean Corp Hgb Conc 34.5 g/dL (32-36); Mean Corpuscular Hgb 29.4 pg (27.0-32.0); Mean Corpuscular Volume 85.3 fL (81-99); Mean Platelet Vol. 9.7 fl (6.2-12.0); Monocyte# 0.51 X10^3/uL; Monocyte% 8.9 % (0-10); NRBC Flagged by Analyzer 0 % (0-5); Neutrophil # 3.14 X10^3/uL (2.7-7.7); Neutrophil % 54.6 % (47-70); Platelet Count 307 K/mm3 (150-450); RBC Distribution Width CV 11.7 % (11.6-14.6); Red Blood Count 4.76 M/mm3 (4.2-5.4); White Blood Count 5.8 K/mm3 (4.4-11.0)
[2024-10-06 10:43] VITALS: PULSE 86; RESP 16
[2024-10-06 10:49] LABS: D-Dimer Quantitative (DVT/PE) 0.31 FEU/ug/m (0.27-0.49)
[2024-10-06 10:53] LABS: Anion Gap 8 (5-15); BUN 16 mg/dL (7-18); BUN/Creat Ratio 22.1 RATIO (10-20); Calcium,Total 9.7 mg/dL (8.5-10.1); Chloride 104 mmol/L (98-107); Creatinine, Serum 0.72 mg/dL (0.55-1.02); EST Glomerular Filtration Rate 90 mL/min (>60); Est Glom Filt Rate - Afr Amer 109 mL/min (>60); Estimated Creatinine Clearance 85.56 ml/min; Glucose 98 mg/dL (74-106); Potassium 3.7 mmol/L (3.5-5.1); Sodium Level 136 mmol/L (136-145); Troponin-I HS < 3 pg/mL (3.0-54.0)
[2024-10-06 10:54] LABS: BNP,B-Type NATRIURETIC PEPTIDE 4.3 pg/mL (0-100)
[2024-10-06 11:13] VITALS: BP 121/79; PULSE 77; RESP 25; O2SAT 95
[2024-10-06 11:45] VITALS: O2SAT 100
[2024-10-06 11:47] VITALS: BP 114/73; PULSE 82; RESP 13; TEMP 36.2; O2SAT 100
[2024-10-06 12:01] VITALS: BP 114/80; PULSE 91; RESP 25; TEMP 36.4; O2SAT 94
== END 2024-10-06 12:03 | disposition home or self-care (01) ==
PROVIDERS: Emergency Provider Surgery; PCP Internal Medicine; Visit Provider Surgery
DX: J06.9 Acute upper respiratory infection, unspecified (principal)
CPT/HCPCS: 71046; 80048; 83880; 84484; 85025; 85379; 87631; 93005; 94640; 99284; A4216